=== PATIENT | female | born 1990 | race Caucasian/White ===

== ENCOUNTER 2017-01-09 18:58 | Emergency (ER) | payer OTHER ==
[~2017-01-09] VITALS: Ht 152.4 cm; Wt 74.8 kg
[~2017-01-09 18:58] MED LIST: ZITHROMAX Z-PA250 M1 PO
--- NOTE | 2017-01-09 19:50 | ED GI/GU/ABDOMINAL COMPLAINT ---
History of Present Illness General Chief Complaint: Abdominal Pain/Flank Pain Stated Complaint: STOMACH PAIN RADIATING TO LEFT SHOULDER X1DAY Source: patient, family, old records Exam Limitations: no limitations Vital Signs & Intake/Output Vital Signs & Intake/Output Vital Signs Date Time Temp Pulse Resp B/P B/P Pulse O2 O2 Flow FiO2 Mean Ox Delivery Rate 01/09 1914 98.5 92 20 123/79 99 Room Air Allergies Coded Allergies: NO KNOWN ALLERGIES (01/09/17) Reconcile Medications Azithromycin (Zithromax Z-Mele) 250 MG CAP 1 DP PO AD ANTIBIOTIC, INFECTION 2 the first day followed by 1 for days 2-5 Triage Note: 2 WEEKS OF CONSTANT DULL MID ABD PAIN SHARP MID ABD PAIN RAD TO LEFT SHOULDER INTERMITTENLY Triage Nurses Notes Reviewed? yes LMP (ages 10-50): unknown ? n Is pt currently ? No Onset: 2 weeks Duration: changing over time, continues in ED, waxing and waning Timing: recent history Quality/Severity: cramping, moderate Location: epigastric, right upper quadrant Radiation: shoulder Activities at Onset: eating Prior Abdominal Problems: none Past Sexual History: Unobtainable at this time Modifying Factors: Worsens With: eating, palpation. Associated Symptoms: abdominal pain, diarrhea, loss of appetite, nausea/vomiting HPI: 2 weeks prior to admission after eating salad patient developed nausea vomiting diarrhea generalized abdominal cramps. Since this time she's had progressive epigastric pain associated with anorexia and nausea vomiting radiating to left shoulder occurring intermittently worse after eating. She denies fever chills chest pain cough shortness of breath headache dysuria rash bleeding . Past History Travel History Traveled to [place] past 21 day No Medical History Any Pertinent Medical History? see below for history Cancer(s): breast cancer Surgical History Surgical History: non-contributory Psychosocial History What is your primary language Bhutanese Tobacco Use: Never used Family History Hx Contributory? No Review of Systems Review of Systems Constitutional: Reports: no symptoms. EENTM: Reports: no symptoms. Respiratory: Reports: no symptoms. Cardiovascular: Reports: no symptoms. GI: Reports: see HPI, abdominal pain. Genitourinary: Reports: no symptoms. Musculoskeletal: Reports: no symptoms. Skin: Reports: no symptoms. Neurological/Psychological: Reports: no symptoms. Hematologic/Endocrine: Reports: no symptoms. Immunologic/Allergic: Reports: no symptoms. All Other Systems: Reviewed and Negative Physical Exam Physical Exam General Appearance: well developed/nourished, alert, awake, anxious, moderate distress, obese Head: atraumatic, normal appearance Eyes: Bilateral: normal appearance, PERRL, EOMI, normal inspection. Ears, Nose, Throat, Mouth: hearing grossly normal, moist mucous membrane Neck: normal inspection, supple, full range of motion, normal alignment, no midline tenderness Respiratory: normal breath sounds, chest non-tender, no respiratory distress, quiet respiration, lungs clear Cardiovascular: regular rate/rhythm, normal peripheral pulses, norml femoral pulses equa Peripheral Pulses: 4+ carotid (R), 4+ carotid (L) Gastrointestinal: normal bowel sounds, soft, non-tender, no organomegaly Back: normal inspection, normal range of motion Extremities: normal range of motion, no ligament instability Neurologic/Psych: no motor/sensory deficits, awake, alert, oriented x 3, normal gait, normal mood/affect, superintendent building II-XII nml as tested Skin: intact, normal color, diaphoresis Core Measures ACS in differential dx? No Severe Sepsis Present: No Septic Shock Present: No Progress Differential Diagnosis: biliary colic, gastritis, pancreatitis, UTI/pyelo Plan of Care: Orders Procedure Date/time Status Add-on Test (ER Only) 01/09 1943 Active LIPASE 01/09 1943 Complete COMPREHENSIVE METABOLIC PANEL 01/09 1943 Complete CBC WITHOUT DIFFERENTIAL 01/09 1943 Complete Add-on Test (ER Only) 01/09 1922 Active URINE 01/09 1915 Complete URINALYSIS 01/09 1909 Complete Laboratory Tests 01/09/172036: Anion Gap 9, Estimated GFR > 60, BUN/Creatinine Ratio 20.0, Glucose 87, Calcium 8.7, Total Bilirubin 0.4, AST 13 L, ALT 37, Alkaline Phosphatase 67, Total Protein 6.2 L, Albumin 3.6, Globulin 2.6, Albumin/Globulin Ratio 1.4, Lipase 109 01/09/172005: CBC w Diff NO MAN DIFF REQ, RBC 4.56, MCV 85.3, MCH 29.1, RDW 13.3, MPV 8.3, Gran % 66.5, Lymphocytes % 25.1, Monocytes % 7.2, Eosinophils % 0.7, Basophils % 0.5, Absolute Granulocytes 5.9, Absolute Lymphocytes 2.2, Absolute Monocytes 0.6 , Absolute Eosinophils 0.1, Absolute Basophils 0, PUBS MCHC 34.2 01/09/171914: Urinalysis LIGHT H, Urine Color YEL, Urine Clarity CLEAR, Urine pH 6.0, Ur Specific Dixon 1.025, Urine Protein NEG, Urine Ketones NEG, Urine Nitrite NEG, Urine Bilirubin NEG, Urine Urobilinogen 0.2, Ur Leukocyte Esterase TRACE H, Ur Microscopic SEDIMENT EXAMINED, Urine RBC RARE, Urine WBC 3-5 H, Ur Epithelial Cells MOD H, Urine Bacteria MOD H, Urine Mucus FEW, Urine Hemoglobin NEG, Urine Glucose NEG, Urine Test NEGATIVE Diagnostic Imaging: Viewed by Me: Ultrasound. Discussed w/RAD: Ultrasound. Radiology Impression: no acute abnormality Initial ED EKG: none Departure Departure Time of Disposition: 2120 Disposition: HOME OR SELF CARE Condition: Stable Clinical Impression Primary Impression: Gastritis and duodenitis Referrals: GOLDEN ARAUJO,LILLIANA Arora (PCP/Family) Departure Forms: Customer Survey General Discharge Information Prescriptions: Current Visit Scripts Sulfamethoxazole/Trimethoprim (Bactrim Ds Tablet) 1 TAB PO BID #14 TAB Metoclopramide HCl (Reglan) 1 TAB PO 4 TIMES/DAY PRN gastritis, nausea #30 TAB 30 minutes before meals and bedtime Famotidine (Pepcid) 1 TAB PO BID #60 TAB Ref 1 Hyoscyamine Sulfate (Levsin-Sl) 1-2 TAB SL Q4P PRN abdominal pain #30 TAB
[2017-01-09 20:13] LABS: ABSOLUTE BASOPHIL COUNT 0 /CUMM (0.0-0.2); ABSOLUTE EOSINOPHIL COUNT 0.1 /CUMM (0.0-0.7); ABSOLUTE GRANULOCYTE CT 5.9 /CUMM (1.4-6.5); ABSOLUTE LYMPH COUNT 2.2 /CUMM (1.2-3.4); ABSOLUTE MONOCYTE COUNT 0.6 /CUMM (0.10-0.60); BASOPHIL % 0.5 % (0.0-2.0); EOSINOPHIL % 0.7 % (0-5); GRANULOCYTE % 66.5 % (42.2-75.2); HEMATOCRIT 38.9 % (37-47); MEAN CORPUSCULAR HGB 29.1 PG (27.0-31.0); MEAN CORPUSCULAR HGB CONC 34.2 G/DL (33.0-37.0); MEAN CORPUSCULAR VOLUME 85.3 FL (81.0-99.0); MEAN PLATELET VOLUME 8.3 FL (7.4-10.4); PLATELET COUNT 292 /CUMM (130-400); RBC DISTRIBUTION WIDTH 13.3 % (11.5-14.5); RED BLOOD CELL CT 4.56 /CUMM (4.20-5.40); WHITE BLOOD CELL COUNT 8.8 /CUMM (4.8-10.8)
--- NOTE | 2017-01-09 20:57 | ULTRASOUND REPORT ---
EXAMINATION: US ABDOMEN LIMITED CLINICAL INFORMATION: Biliary colic. Right upper quadrant pain.. COMPARISON: None TECHNIQUE: Real-time imaging of the right upper quadrant abdominal viscera. FINDINGS: PANCREAS: Mostly obscured by overlying bowel gas. LIVER: Normal. The liver demonstrates normal size, contour and echogenicity. No focal lesion or intrahepatic biliary duct dilatation. GALLBLADDER: Normal. The gallbladder is physiologically distended without evidence of stones, sludge, polyps, wall thickening or pericholecystic fluid. COMMON BILE DUCT: Normal in caliber measuring 0.3 cm in diameter. RIGHT KIDNEY: Normal. No hydronephrosis. No renal calculi or focal parenchymal lesions. The kidney measures 11.2 cm in maximum dimension. FREE FLUID: None. IMPRESSION: Normal exam No evidence for cholelithiasis or cholecystitis. Pancreas mostly obscured by overlying bowel gas
[2017-01-09] MEDS ORDERED: REGLAN10 M1 PO (21:29)
[2017-01-09] MEDS ORDERED: BACTRIM DS TAB1 EACH PO (21:29)
[2017-01-09] MEDS ORDERED: PEPCID20 M1 PO (21:29)
[2017-01-09] MEDS ORDERED: LEVSIN-SL0.125 MG SL (21:29)
[2017-01-09 21:36] VITALS: BP 115/54
== END 2017-01-09 21:40 ==
LOC: ERH 18:58
PROVIDERS: Emergency Medicine
DX: K29.70 Gastritis, unspecified, without bleeding (principal); K29.80 Duodenitis without bleeding
CPT/HCPCS: 81001; 81025; 96374; 96375; J0131; J2765